=== PATIENT | male | born 1995 | race Caucasian/White ===

== ENCOUNTER 2024-08-10 21:03 | Emergency (ER) | payer SELFPAY ==
[~2024-08-10] VITALS: Wt 70.8 kg
[~2024-08-10 21:03] MED LIST: CYCLOBENZAPRINE5 M3 PO; HYDROCODONE BIT1 T11 PO; Motrin,Rufen800 MG PO; NAPROSYN500 MG PO
[2024-08-10] MEDS ORDERED: Naloxone Hydrochloride 2 MG/2 ML SYR IV ONE ×2 (21:10)
[2024-08-10] MEDS ORDERED: Naloxone Hydrochloride 2 MG/2 ML SYR ONE (21:16)
[2024-08-10 21:24] LABS: HEMATOCRIT 51.5 % (42.0-52.0); MANUAL DIFF REFLEX YES; MEAN CELL VOLUME 96.4 fl (80.0-94.0); MEAN CORPUSCULAR HGB CONC 33.2 g/dl (33.0-37.0); MEAN PLATELET VOLUME 10.3 fl (9.6-12.3); PLATELET COUNT AUTOMATED 366 10*3/uL (130-400); RED BLOOD COUNT 5.34 10*6/uL (4.50-5.90); RED CELL DISTRI WIDTH 12.6 % (0-14.5); WHITE BLOOD COUNT 16.5 10*3/uL (4.8-10.8)
[2024-08-10 21:45] LABS: BUN 7 mg/dl (9-23); CHLORIDE 104 mmol/L (98-107); CPK 83 U/L (34-171); ETHYL ALCOHOL 167.5 mg/dl (<3); POTASSIUM 4.2 mmol/L (3.4-5.1)
[2024-08-10 21:50] LABS: OVALOCYTES FEW; PLATELET SUFFICIENCY NORMAL (NORMAL); ROULEAUX SLIGHT; SPHEROCYTES FEW; TOTAL CELLS COUNTED 100 #CELLS
== END 2024-08-10 21:36 | disposition left against medical advice (07) ==
LOC: ED 21:03
PROVIDERS: Internal Medicine
DX: T50.901A Poisoning by unspecified drugs, medicaments and biological substances, accidental (unintentional), initial encounter (principal); R40.4 Transient alteration of awareness; R00.0 Tachycardia, unspecified; R23.0 Cyanosis; Z79.899 Other long term (current) drug therapy; Y92.89 Other specified places as the place of occurrence of the external cause

== ENCOUNTER 2024-08-22 09:51 | Emergency (ER) | payer SELFPAY ==
[~2024-08-22] VITALS: Ht 170.1 cm; Wt 72.6 kg
[2024-08-22] MEDS ORDERED: AMOX-CLAV 875-1 EACH PO (10:05)
[2024-08-22] MEDS ORDERED: Acetaminophen/Oxycodone 5 MG/325 MG TABLET PO ONE (10:05)
[2024-08-22] MEDS ORDERED: MELOXICAM15 MG PO (10:05)
[2024-08-22] MEDS ORDERED: Amoxicillin/Clavulanate Pota 875 MG TAB PO ONE (10:05)
== END 2024-08-22 10:11 | disposition home or self-care (01) ==
LOC: ED 09:51
DX: K08.89 Other specified disorders of teeth and supporting structures (principal); R22.0 Localized swelling, mass and lump, head; F17.210 Nicotine dependence, cigarettes, uncomplicated

== ENCOUNTER 2024-11-10 17:12 | Inpatient (IN) | payer SELFPAY ==
[~2024-11-10] VITALS: Ht 170.2 cm; Wt 70.0 kg
[~2024-11-10 17:12] MED LIST changes: +AMOX-CLAV 875-1 EACH PO; +MELOXICAM15 MG PO
[2024-11-10 17:40] VITALS: BP 156/94
[2024-11-10 17:58] LABS: BASO # 0.1 10*3/uL (0.0-0.1); BASO % 0.4 % (0.0-1.0); EOS # 0.1 10*3/uL (0.0-0.4); EOS % 0.4 % (1.0-4.0); HEMATOCRIT 44.5 % (42.0-52.0); MEAN CELL VOLUME 91.8 fl (80.0-94.0); MEAN CORPUSCULAR HGB 30.7 pg (27.0-31.0); MEAN CORPUSCULAR HGB CONC 33.5 g/dl (33.0-37.0); MEAN PLATELET VOLUME 10.1 fl (9.6-12.3); MONO # 0.8 10*3/uL (0.1-1.0); MONO % 5.9 % (3.0-9.0); NEUT # 11.3 10*3/uL (2.3-7.9); NEUT % 79.8 % (47.0-73.0); PLATELET COUNT AUTOMATED 350 10*3/uL (130-400); RED BLOOD COUNT 4.85 10*6/uL (4.50-5.90); RED CELL DISTRI WIDTH 12.2 % (0-14.5); WHITE BLOOD COUNT 14.1 10*3/uL (4.8-10.8)
[2024-11-10 18:24] LABS: ALKALINE PHOSPHATASE 68 U/L (46-116); BUN 8 mg/dl (9-23); CHLORIDE 103 mmol/L (98-107); CPK 342 U/L (34-171); ETHYL ALCOHOL < 3.0 mg/dl (<3); LIPASE 34 U/L (12-53); POTASSIUM 3.5 mmol/L (3.4-5.1); SGPT/ALT 41 U/L (5-49)
[2024-11-10 18:29] LABS: BILIRUBIN Negative (Negative); BLOOD Negative (Negative); CLARITY Clear (Clear); COLOR Yellow (Yellow); GLUCOSE Negative (Negative); KETONE Negative (Negative); LEUKO ESTERASE Negative (Negative); NITRITE Negative (Negative); SPECIFIC GRAVITY <= 1.005 (1.001-1.030); UROBILINOGEN 0.2 E.U./dl (0.0-1.0)
[2024-11-10 18:30] LABS: PH 8.5 (4.5-8.0)
[2024-11-10 18:36] LABS: URINE AMPHETAMINES Negative (1000ng/ml); URINE BARBITURATES Negative (200ng/ml); URINE BENZODIAZEPINES Negative (200ng/ml); URINE CANNABINOIDS (THC) Positive (50ng/ml); URINE COCAINE Negative (300ng/ml); URINE METHADONE Negative (300ng/ml); URINE OPIATES Negative (300ng/ml); URINE PHENCYCLIDINE Negative (25ng/ml)
[2024-11-10 18:38] LABS: BACTERIA TRACE; EPITHELIAL CELLS 0-2; WBC 0-2 wbc/hpf (0-5)
[2024-11-10] MEDS ORDERED: SODIUM CHLORIDE 0.9% 1,000 ML IV ONE (18:40)
[2024-11-10] MEDS ORDERED: Magnesium Hydroxide 30 ML UDC PO PRN (20:25)
[2024-11-10] MEDS ORDERED: ACETAMINOPHEN 650 MG SUPP R PRN (20:25)
[2024-11-10] MEDS ORDERED: ACETAMINOPHEN 325 MG TAB PO PRN (20:25)
[2024-11-10] MEDS ORDERED: BISACODYL 10 MG SUPP R PRN (20:25)
[2024-11-10] MEDS ORDERED: BISACODYL 5 MG TAB PO PRN (20:25)
[2024-11-10] MEDS ORDERED: Ondansetron Hydrochloride 4 MG/2 ML VIAL IV PRN (20:25)
[2024-11-10] MEDS ORDERED: diphenhydrAMINE hydrochloride 50 MG/ML VIAL IV PRN (20:30)
[2024-11-10] MEDS ORDERED: Dicyclomine Hydrochloride 20 MG TAB PO PRN (20:30)
[2024-11-10] MEDS ORDERED: rOPINIRole Hydrochloride 0.25 MG TAB PO PRN (20:30)
[2024-11-10] MEDS ORDERED: hydrOXYzine 50 MG CAP PO PRN (20:30)
[2024-11-10] MEDS ORDERED: METHOCARBAMOL 750 MG TAB PO PRN (20:30)
[2024-11-10] MEDS ORDERED: FOLIC ACID 1 MG TAB PO ONE (20:35)
[2024-11-10] MEDS ORDERED: Buprenorphine Hydrochloride 2 MG TAB SL SCH (20:40)
[2024-11-10] MEDS ORDERED: Nicotine 21 MG PATCH T SCH (20:45)
[2024-11-10 21:07] VITALS: BP 139/88
[2024-11-10] MEDS ORDERED: TEMAZEPAM 15 MG CAP PO PRN (22:00)
[2024-11-10] MEDS ORDERED: LORazepam 1 MG TAB PO SCH (22:00)
[2024-11-10] MEDS ORDERED: Thiamine 200 MG/2 ML VIAL IV SCH (22:00)
[2024-11-10 22:18] VITALS: BP 121/80
[2024-11-11 07:16] LABS: BASO # 0.1 10*3/uL (0.0-0.1); BASO % 0.6 % (0.0-1.0); EOS # 0.2 10*3/uL (0.0-0.4); EOS % 2.1 % (1.0-4.0); HEMATOCRIT 44.4 % (42.0-52.0); MEAN CELL VOLUME 91.7 fl (80.0-94.0); MEAN CORPUSCULAR HGB CONC 33.8 g/dl (33.0-37.0); MEAN PLATELET VOLUME 10.5 fl (9.6-12.3); MONO % 9.1 % (3.0-9.0); NEUT # 6.6 10*3/uL (2.3-7.9); NEUT % 61.7 % (47.0-73.0); PLATELET COUNT AUTOMATED 349 10*3/uL (130-400); RED BLOOD COUNT 4.84 10*6/uL (4.50-5.90); RED CELL DISTRI WIDTH 12.5 % (0-14.5); WHITE BLOOD COUNT 10.7 10*3/uL (4.8-10.8)
[2024-11-11 08:00] VITALS: BP 123/68
[2024-11-11] MEDS ORDERED: MULTIVITAMIN 1 TAB TAB PO SCH (10:00)
[2024-11-11] MEDS ORDERED: Enoxaparin Sodium 40 MG/0.4 ML SYR SC SCH (10:00)
[2024-11-11 11:30] VITALS: BP 132/80
[2024-11-11 16:00] VITALS: BP 117/72
[2024-11-11] MEDS ORDERED: Buprenorphine Hydrochloride 2 MG TAB SL SCH (20:00)
[2024-11-12] MEDS ORDERED: LORazepam 1 MG TAB PO SCH
[2024-11-12 05:06] LABS: HBsAG SCREEN Negative (Negative); HEP B CORE Ab, IgM Negative (Negative)
[2024-11-12] MEDS ORDERED: LORazepam 1 MG TAB PO PRN (18:00)
[2024-11-13] MEDS ORDERED: Buprenorphine Hydrochloride 2 MG TAB SL SCH
== END 2024-11-11 19:25 | disposition left against medical advice (07) | DRG 894 ==
LOC: ED 17:12 → EDHOLD 18:45 → 5E 18:45
PROVIDERS: Internal Medicine; ADMIT Internal Medicine; ATTEND Internal Medicine
DX: F11.13 Opioid abuse with withdrawal (principal); E87.20 Acidosis, unspecified; F19.139 Other psychoactive substance abuse with withdrawal, unspecified; Z53.29 Procedure and treatment not carried out because of patient's decision for other reasons; D72.829 Elevated white blood cell count, unspecified; R73.9 Hyperglycemia, unspecified; F17.200 Nicotine dependence, unspecified, uncomplicated; F10.10 Alcohol abuse, uncomplicated; Z79.899 Other long term (current) drug therapy; Z79.01 Long term (current) use of anticoagulants; Z79.2 Long term (current) use of antibiotics; Y90.9 Presence of alcohol in blood, level not specified